=== PATIENT | male | born 1970 | race Caucasian/White ===

== ENCOUNTER 2018-06-23 14:06 | Outpatient (CLI) | payer BC, SELFPAY ==
--- NOTE | 2018-06-23 14:18 | PC.NURSE ---
HERE FOR [facility] PRE EMPLOYMENT PHYSICAL
== END 2018-06-23 14:53 | disposition home or self-care (01) ==
LOC: UTC.OUT 14:11
PROVIDERS: Visit Provider Nurse Practitioner
DX: Z02.1 Encounter for pre-employment examination (principal)

== ENCOUNTER → 2018-07-05 08:26 | Outpatient (POV) | payer BC, SELFPAY | PROVIDERS: Visit Provider Dermatology | DX: Z00.00 Encounter for general adult medical examination without abnormal findings (principal) ==